=== PATIENT | female | born 1950 | race Caucasian/White ===

== ENCOUNTER → 2022-05-23 13:11 | Outpatient (CLI) | payer MEDICARE, SELFPAY ==
--- NOTE | ~2022-05-23 | DEXA_ITS ---
Bone Density Report Name: ELIZA ESCOBEDO Age: 71 Sex: Female Ethnicity: White Date of : 1950 Indication: postmenopausal; screening for osteoporosis; history of glucocorticoids; hysterectomy; Referring Provider: CHRISYT, KIMMIE Jewell Study: Bone densitometry was performed. Exam Date: May 23, 2022 Accession number: [id number] Bone Density: Region BMD T-score Z-score Classification AP Spine (L1, L2, L3) 1.185 1.5 3.7 Normal Femoral Neck (Left) 0.911 0.6 2.5 Normal Total Hip (Left) 1.239 2.4 4.0 Normal Femoral Neck (Right) 0.919 0.6 2.5 Normal Total Hip (Right) 1.148 1.7 3.3 Normal Total Hip Mean 1.194 2.1 3.7 Normal World Health Organization criteria for BMD impression classify patients as: Normal (T-score at or above -1.0), Osteopenia (T-score between -1.0 and -2.5), or Osteoporosis (T-score at or below -2.5). 10-year Fracture Risk: FRAX not reported because: All T-scores for Spine Total, Hip Total, Femoral Neck at or above -1.0 Previous Exams: Region Exam Age BMD T-score BMD Change BMD Change Date g/cm2 vs Baseline vs Previous AP Spine(L1, L2, L3) 05/23/2022 71 1.185 1.5 0.031 -0.013 10/19/2010 60 1.197 1.6 0.044* 0.044* 11/17/2007 57 1.154 1.2 Total Hip(Left) 05/23/2022 71 1.239 2.4 0.083 0.056 10/19/2010 60 1.183 2.0 0.027 0.077* 11/17/2007 57 1.105 1.3 -0.050 -0.050 03/23/2004 53 1.156 1.8 Total Hip(Right) 05/23/2022 71 1.148 1.7 0.019 0.014 10/19/2010 60 1.134 1.6 0.005 0.066* 11/17/2007 57 1.068 1.0 -0.060 -0.060 03/23/2004 53 1.128 1.5 *Denotes significance at 95% confidence level, LSC for AP Spine = 0.022 g/cm2, LSC for Total Hip = 0.027 g/cm2 Clinical Information Provided by Patient: Has taken Glucocorticoids Has used the following medications: Vitamin D, MTV, Calcitriol Has the following medical conditions: Hysterectomy, stage 3 kidney disease Patient maximum height was 68 Menopause Age: 45 No regular weight bearing exercise Onset of menses at age 13 Number of children 2 Impression: The patient has normal bone mass. The patient has risk factors, including: history of glucocorticoid therapy. No significant bone loss was observed. Discussion: LOW RISK OF FRACTURE; BONE DENSITY IS WELL ABOVE THE MINIMUM MATTI
--- NOTE | ~2022-05-23 | MM_ITS ---
EXAMINATION: MM screening [facility] [place] HISTORY: Screening mammogram TECHNIQUE: Craniocaudal and mediolateral oblique 3-D tomosynthesis images were obtained and synthetic 2-D images were generated. CAD analysis was submitted and interpreted. COMPARISON: 10/19/2010 bilateral screening mammogram BREAST PARENCHYMAL COMPOSITION: There are scattered areas of fibroglandular density. FINDINGS: There are bilateral circumscribed opacities measuring up to 6 mm on the right and 5 mm on t he left. Bilateral diagnostic mammography and breast ultrasound examination are recommended. Biopsy marker on the right; history of prior benign right breast biopsy. IMPRESSION: 1. Bilateral breast masses 2. Bilateral diagnostic mammography and breast ultrasound examination are recommended. BI-RADS Category 0: Incomplete: Needs additional imaging evaluation. Reviewed, dictated and finalized at location A. IMPRESSION: 1. Bilateral breast masses 2. Bilateral diagnostic mammography and breast ultrasound examination are recom mended. BI-RADS Category 0: Incomplete: Needs additional imaging evaluation.
== END ==
PROVIDERS: PCP Internal Medicine; Visit Provider Internal Medicine
DX: Z12.31 Encounter for screening mammogram for malignant neoplasm of breast (principal); R92.8 Other abnormal and inconclusive findings on diagnostic imaging of breast; M81.0 Age-related osteoporosis without current pathological fracture
CPT/HCPCS: 77063; 77067; 77080

== ENCOUNTER 2024-12-14 11:23 | Outpatient (CLI) | payer MEDICARE, SELFPAY ==
--- NOTE | ~2024-12-14 | MM_ITS ---
EXAMINATION: MM screening [facility] [place] HISTORY: Screening mammogram, family history of breast cancer in her sister. TECHNIQUE: Craniocaudal and mediolateral oblique 3-D tomosynthesis images were obtained and synthetic 2-D images were generated. CAD analysis was submitted and interpreted. COMPARISON: 05/23/2022, 11/17/2020 BREAST PARENCHYMAL COMPOSITION:Not Dense. The breasts are almost entirely fatty FINDINGS: Multiple small low-density bilateral masses are present, overall similar to prior exam. The re is however a 7 mm low-density round mass in the upper, central right breast which is new from prio r exam. No suspicious microcalcifications. IMPRESSION: New 7 mm round mass in the upper, central right breast, middle to posterior depth. Ultrasound recomm ended to further evaluate. Multiple additional subcentimeter bilateral breast masses are essentially unchanged, compatible with benign findings. BI-RADS Category 0: Incomplete: Needs additional imaging evaluation. Reviewed, dictated and finalized at location M. LE FORMS DEVELOPER IMPRESSION: New 7 mm round mass in the upper, central right breast, middle to posterior de pth. Ultrasound recommended to further evaluate. Multiple additional subcentimeter bilateral breast masses are essentially uncha nged, compatible with benign findings. BI-RADS Category 0: Incomplete: Needs additional imaging evaluation.
== END 2024-12-14 11:24 | disposition home or self-care (01) ==
LOC: MICIMG 11:24
PROVIDERS: PCP Internal Medicine; Visit Provider Internal Medicine
DX: Z12.31 Encounter for screening mammogram for malignant neoplasm of breast (principal); R92.8 Other abnormal and inconclusive findings on diagnostic imaging of breast
CPT/HCPCS: 77063; 77067

== ENCOUNTER 2024-12-28 08:47 | Outpatient (CLI) | payer MEDICARE, SELFPAY ==
--- NOTE | ~2024-12-28 | US_ITS ---
US breast RT limited 12/28/2024 09:17 Indication: Follow-up right breast mass seen on recent examination Procedure: High-resolution Limited right breast ultrasound Comparison: Mammogram dated 12/14/2024 Findings: There is a cluster of microcysts measuring 6 mm at 12:00, 6 cm from the nipple, likely hank esponding to the abnormality seen on mammography. There is also a 6 mm cyst at 1:00, 7 cm from the ni pple. No suspicious masses to suggest malignancy. Impression: 1: No evidence for malignancy in the right breast. Benign findings. Routine yearly screening mammogram and regular clinical breast examination are recommended. BI-RADS CATEGORY 2 - BENIGN FINDINGS Reviewed, dictated and finalized at location A. TROTHERAPIST Impression: 1: No evidence for malignancy in the right breast. Benign findings. Routine yearly screening mammogram and regular clinical breast examination are recommended. BI-RADS CATEGORY 2 - BENIGN FINDINGS
== END 2024-12-28 08:48 | disposition home or self-care (01) ==
PROVIDERS: PCP Internal Medicine; Visit Provider Internal Medicine
DX: R92.8 Other abnormal and inconclusive findings on diagnostic imaging of breast (principal)
CPT/HCPCS: 76642